=== PATIENT | female | born 1950 | race Caucasian/White ===

== ENCOUNTER 2024-03-05 08:02 | Day surgery (SDC) | payer MEDICARE, SELFPAY ==
[2024-03-05] VITALS (10 sets, daily range): BP systolic 106–125; BP diastolic 48–65; PULSE 74–94; RESP 16–18; TEMP 35.5–36.4; O2SAT 94–100; BMI 41.1
[2024-03-05] MEDS: Lactated Ringers 1,000 ML 15 ML IV (08:20)
--- NOTE | 2024-03-05 08:28 | PRE.ANES_ITS ---
ASA Classification* ASA Classification ASA Classification: 3 Assessment & Plan Anesthesia* Anesthesia Assessment Anesthesia Assessment: Discussed sedation and/or anesthesia options, risks, benefits, and alternatives with patient/parents/legal guardian/POA. Questions invited. The patient/parents/legal guardian/POA seems to understand and agrees to proceed with anesthesia plan. Reviewed the physical assessment, medical history, allergy history and patient home medications list prior to surgery/procedure/anesthetic and documented any changes. Performed airway and anesthesia risk assessments. Anesthesia Type Anesthesia Type: MAC Anesthesia Focused Assessment* Temperature: 97.5 F Pulse Rate: 94 Blood Pressure: 123/62 Respiratory Rate: 16 Pulse Ox: 94 Airway Assessment Mouth opens: >3 cm Mallampati Score: II Focused Labs Anesthesia Preop lab: CBC CHEMISTRY COAG Pre-Assessment Diagnosis/Proposed Procedure Planned Operative Procedure(s): TEMPORAL ARTERY BIOPSY Anesthesia History Anesthesia History - alcohol and drug counselor: Anesthesia History - alcohol and drug counselor Hx Hospitalization Yes: DECEMBER 2023, [facility]PASS, 03/04/24 10:09 MITRAL VALVE Any Problems With Anesthesia No: DEVIATED SEPTUM LEFT 03/04/24 10:09 SIDE Cholinesterase deficiency No 03/04/24 10:09 You/Your Family Experience No 03/04/24 10:09 fever (hyperthermia) with Relationship Recent Exposure to Contagious No 03/05/24 08:17 Disease Does patient have nerve No 03/04/24 10:09 stimulator Patient instructed to have device shut off --Does patient have Pacemaker No 03/05/24 08:17 or ICD? When Was Last Pacemaker Check QUESTION #4 FULL TEXT: You/Your Family Experience fever (hyperthermia) with Anesthesia Last Oral Intake Last Oral intake: Last Oral Intake NPO since 22:00 03/05/24 08:17 Meds taken in AM with sips of water? Meds patient instructed to take am of surgery PONV PONV - alcohol and drug counselor: PONV - alcohol and drug counselor Female Yes 03/04/24 10:09 HX of Motion Sickness No 03/04/24 10:09 HX of N/V After Surgery No 03/04/24 10:09 Non-Smoker Yes 03/04/24 10:09 Duration of Surgery greater No 03/04/24 10:09 than 60 minutes Number of Risk Factors 2 03/04/24 10:09 PONV Score Moderate Risk 03/04/24 10:09 Height & Weight Height & Weight: Anesthesia: Height & Weight Height 5 ft 2 in 03/05/24 08:17 Weight: 102 kg 03/05/24 08:17 Body Mass Index (BMI) 41.1 03/05/24 08:17 Respiratory Assessment Respiratory Assessment - alcohol and drug counselor: Respiratory Tract Infection Hx - alcohol and drug counselor Hx Respiratory Tract Infection No 03/04/24 10:09 STOP Sleep Apnea STOP Sleep Apnea - alcohol and drug counselor: STOP Sleep Apnea - alcohol and drug counselor Hx Hypertension Yes: CONTROLLED 03/04/24 10:09 Hx Sleep Apnea No 03/04/24 10:09 CPAP BIPAP Do you snore loudly (louder Yes 03/04/24 10:09 than talking or can be heard Do you often feel tired/ No 03/04/24 10:09 fatigued/ sleepy during daytime? Has anyone observed you stop No 03/04/24 10:09 breathing during sleep? STOP Results Positive 03/04/24 10:09 QUESTION #5 FULL TEXT : Do you snore loudly (louder than talking or can be heard through closed doors)? Tobacco Use History Tobacco Use History - alcohol and drug counselor: Tobacco Use History - alcohol and drug counselor Tobacco Use Smoking Status Never smoker 03/04/24 10:09 Hx Tobacco Use No 03/04/24 10:09 Years Smoking Packs Smoked per Day Smoking Cessation Date was within the last 15 years Hx Smoking Cessation Date Hx Smoking Cessation Counseling Hematologic Medial History Hematologic Hx - alcohol and drug counselor: Hematologic Medical Hx - change manager Hx of Blood Transfusion Yes 03/04/24 10:09 Hx of Transfusion in last 3 No 03/04/24 10:09 Months Date of Last Transfusion (if within last 3 months) Ever experience any problems No 03/04/24 10:09 with transfusion(s)? Specify any problems Hx of Preganancy in last 3 N/A 03/04/24 10:09 Months Nurse Filling Out Transfusion [email or web address] 03/04/24 10:09 & Questions: Date: 03/04/24 03/04/24 10:09 Time: 10:18 03/04/24 10:09 Patient unable to answer at this time (ie. confused, unrespo /Reproduction History /Reproductive History - alcohol and drug counselor: /Reproductive Hx- alcohol and drug counselor Hx Now Gestational Age (in weeks): EDC: Hx Hx Para Hx Section SAB Active Medications Active Medications: Current Medications Generic Name Dose Route Start Last Admin Trade Name Freq PRN Reason Stop Dose Admin Lactated Ringer's 1,000 mls @ 15 mls/hr 03/05/24 08:15 03/05/24 08:20 IV 15 mls/hr .Q48H JUSTINO Administration PFSH Medical History Uterine cancer Wears glasses Depression Fibromyalgia Fatty liver Stage 3 chronic kidney disease Open wound Injury of head and neck Gastric reflux Non-smoker Hypertension Cardiology follow-up encounter Arthritis Back problem Thyroid disease Asthma Heart attack A-fib Home Medications ?Medication ?Instructions ?Recorded ?Last Taken ?Type albuterol sulfate 90 mcg/actuation 2 puff inhalation Q6H PRN 03/03/24 Unknown History aerosol inhaler (Ventolin HFA) shortness of breath or wheezing ascorbic acid (vitamin C) 250 mg 250 mg PO DAILY 03/03/24 Unknown History tablet aspirin 81 mg tablet,delayed 81 mg PO DAILY 03/03/24 03/04/24 History release (Adult Low Dose Aspirin) cetirizine 10 mg capsule (Zyrtec) 10 mg PO DAILY allergy symptoms 03/03/24 Unknown History cholecalciferol (vitamin D3) 1,250 1,250 mcg PO QWEEK 03/03/24 Unknown History mcg (50,000 unit) capsule coQ10 (ubiquinol) 100 mg capsule 100 mg PO BID 03/03/24 Unknown History (Qunol Chivo CoQ10) docusate sodium 100 mg capsule 100 mg PO DAILY 03/03/24 Unknown History duloxetine 20 mg capsule,delayed 20 mg PO BID 03/03/24 Unknown History release fluticasone furoate 200 1 inh inhalation DAILY 03/03/24 Unknown History mcg-vilanterol 25 mcg/dose inhalation powder (Breo Ellipta) levothyroxine 75 mcg capsule 75 mcg PO DAILY 03/03/24 03/05/24 History metoprolol tartrate 25 mg tablet 25 mg PO DAILY 03/03/24 03/05/24 History omeprazole 20 mg capsule,delayed 20 mg PO DAILY PRN GERD 03/03/24 Unknown History release oxycodone-acetaminophen 5 mg-325 1 tab PO Q4-6H PRN pain 03/03/24 03/05/24 06:00 History mg tablet (Percocet) pyridoxine (vitamin B6) 100 mg 100 mg PO DAILY 03/03/24 Unknown History tablet spironolactone 25 mg tablet 25 mg PO DAILY 03/03/24 Unknown History valsartan 40 mg tablet 40 mg PO BID 03/03/24 03/05/24 History acetaminophen 500 mg capsule 1,000 mg PO Q8H PRN pain 03/04/24 Unknown History magnesium oxide 400 mg (241.3 mg 400 mg PO BID 03/04/24 Unknown History magnesium) tablet Allergy/AdvReac Type Severity Reaction Status Date / Time fluticasone (From Flonase) Allergy Intermediate Upset Verified 03/04/24 10:02 Stomach Surgical History History of total left knee replacement H/O: hysterectomy Hx of tonsillectomy Hx of appendectomy H/O neck surgery H/O heart surgery Hx of CABG Social History Smoking Status: Never smoker alcohol intake: current substance use type: does not use Review of Systems (Anesthesia) ROS Narrative System reviewed and no additional complaints, except as documented.
[2024-03-05] MEDS: Lubricating Jelly 60 GM Tube 30 GM (09:48)
--- NOTE | 2024-03-05 10:00 | TEM_PTH ---
PATIENT: SHARMIN MEZA [place]: [facility] [place] U[place][id number] AGE/SX: 73/F ROOM: RE03/05/[address]: Dr. Jayy Nayak MD : 1950 BED: DIS: 03/05/2024 SPEC #: [id number] RECD: 03/05/24 14:10 STATUS: SHAI ANNEMARIE #: [id number] MOHAN: 03/05/24 10:[address]: Jayy Nayak DEPT: SURGICAL PATHOLOGY RECD BY: Simon Honeycutt ENTERED: 03/05/24 14:16 SP TYPE: TEMPORAL OTHR DR: Dr. Keisha Dobbs, DO Tissues: Temporal region Procedures: Surgery Specimen Level IV HEADER OPERATION: Biopsy, left temporal artery PRE-OP DIAGNOSIS: Temporal pain TISSUE SUBMITTED: Left temporal artery MICROSCOPIC DIAGNOSIS Left temporal artery, biopsy: Negative for giant cell arteritis. See comment. SJ/mr 03/08/2024 COMMENT Elastic stain with matched control is used in the evaluation of the specimen. Clinical correlation and appropriate follow up are necessary. MICROSCOPIC DESCRIPTION Slides are reviewed. GROSS DESCRIPTION Received in fixative is one container labeled with the patient's name and designated Left temporal artery. The specimen consists of one irregular fragment of light davis soft tissue that measures 2.0cm in length and 0.1cm in diameter. The specimen is totally submitted in one cassette. 03/05/2024 TC:4 CPT:67531,44662
--- NOTE | 2024-03-05 10:16 | HP.PCM_ITS ---
History and Physical Date of Admission: 03/05/24 Date of Service: 03/03/24 MR#: [id number] Acct: [id number] Name: SHARMIN ROD Rep #: [id number] : 1950 Provider: Dr. Jayy Nayak MD Age/Sex: 73/F Location: [facility] Status: Signed Intake Vital Signs 03/03/2414:03 Height 5 ft 2 in Weight: 226 lb BMI 41.3 BP 108/71 Blood Pressure Location Rt brachial Position Sitting Respiration 17 Pulse 83 Pulse Source Monitor Pulse Oximetry (%) 94 Oxygen Delivery Method room air Intake Visit Reasons: TEMPORAL ARTERY Chief Complaint: temporal artery Is patient in pain?: Yes (neck,face, temporal area, teeth and behind left eye) Allergies fluticasone (From Flonase) Allergy (Intermediate, Verified 03/04/24 10:02) Upset Stomach Medications ?Medication ?Instructions ?Recorded ?Confirmed ?Type albuterol sulfate 90 mcg/actuation 2 puff inhalation Q6H PRN 03/03/24 03/04/24 History aerosol inhaler (Ventolin HFA) shortness of breath or wheezing ascorbic acid (vitamin C) 250 mg 250 mg PO DAILY 03/03/24 03/04/24 History tablet aspirin 81 mg tablet,delayed 81 mg PO DAILY 03/03/24 03/04/24 History release (Adult Low Dose Aspirin) cetirizine 10 mg capsule (Zyrtec) 10 mg PO DAILY allergy symptoms 03/03/24 History cholecalciferol (vitamin D3) 1,250 1,250 mcg PO QWEEK 03/03/24 03/04/24 History mcg (50,000 unit) capsule coQ10 (ubiquinol) 100 mg capsule 100 mg PO BID 03/03/24 03/04/24 History (Qunol Chivo CoQ10) docusate sodium 100 mg capsule 100 mg PO DAILY 03/03/24 03/04/24 History duloxetine 20 mg capsule,delayed 20 mg PO BID 03/03/24 03/04/24 History release fluticasone furoate 200 1 inh inhalation DAILY 03/03/24 03/04/24 History mcg-vilanterol 25 mcg/dose inhalation powder (Breo Ellipta) levothyroxine 75 mcg capsule 75 mcg PO DAILY 03/03/24 03/04/24 History metoprolol tartrate 25 mg tablet 25 mg PO DAILY 03/03/24 03/04/24 History omeprazole 20 mg capsule,delayed 20 mg PO DAILY PRN GERD 03/03/24 03/04/24 History release oxycodone-acetaminophen 5 mg-325 1 tab PO Q4-6H PRN pain 03/03/24 03/04/24 History mg tablet (Percocet) pyridoxine (vitamin B6) 100 mg 100 mg PO DAILY 03/03/24 03/04/24 History tablet spironolactone 25 mg tablet 25 mg PO DAILY 03/03/24 03/04/24 History valsartan 40 mg tablet 40 mg PO BID 03/03/24 03/04/24 History acetaminophen 500 mg capsule 1,000 mg PO Q8H PRN pain 03/04/24 03/04/24 History amiodarone 200 mg tablet 200 mg PO DAILY 03/04/24 03/04/24 History magnesium oxide 400 mg (241.3 mg 400 mg PO BID 03/04/24 03/04/24 History magnesium) tablet Have you fallen in the past year?: No PFSH Medical History (Updated 03/04/24 @ 21:[address] Jayy Nayak MD) Uterine cancer Wears glasses Depression Fibromyalgia Fatty liver Stage 3 chronic kidney disease Open wound Injury of head and neck Gastric reflux Non-smoker Hypertension Cardiology follow-up encounter Arthritis Back problem Thyroid disease Asthma Heart attack A-fib Surgical History (Updated 03/04/24 @ 10:27 by Campbell Abdi) History of total left knee replacement H/O: hysterectomy Hx of tonsillectomy Hx of appendectomy H/O neck surgery H/O heart surgery Hx of CABG Social History (Updated 03/03/24 @ 14:03 by María Elena Teresa) Smoking Status: Never smoker alcohol intake: current substance use type: does not use HPI HPI HPI: Patient is a 73-year-old female who presents for consideration of temporal artery biopsy. She is referred from Dr. Dobbs. She shares that beginning on 02/12/2024 she started with some neck pain that progressed to tenderness of her scalp (she notes that her hair follicles seem to hurt), terrible tooth ache, retro-orbital eye pain, and pain even within her left ear. When asked to prioritize these pain she describes pain is worst with her left ear. She notes multiple ER visits and a preliminary diagnosis of trigeminal neuralgia. She states that she was on carbamazepine through emergency department but was advised that it could take a week before this becomes effective. She since has gone off this medication and has been prescribed oxycodone. However, she notes that this relief is limited to 4 hours and she is to take them only every 6 h ours so she spends a considerable amount of time pain. She asked me whether it is possible to have something additional. When asked about any visual difficulties she denies any blurred vision, specifically Patient is actively recovering from a coronary artery bypass grafting procedure performed 12/30/2023. She states that she presented to ER for complaints of very light chest pressure and was diagnosed to have a heart attack in early December. She ultimately underwent the CABG procedure at the [facility]. Perioperatively she was managed for pleural effusions as well as perioperative atrial fibrillation. She also notes that her perioperative echocardiogram showed initial ejection fraction of 15% that improved to 32%. She states that her exercise tolerance continues to improve postoperatively and she confirms that she is now able to take the stairs in their two-level home without stopping due to shortness of breath. ROS General General: Yes weight change and fatigue; No appetite, colon cancer, breast cancer or weakness HEENT HEENT: No difficulty swallowing, eye injury, eye surgery, swollen glands or hoarseness Endo Endocrine: Yes thyroid disease; No diabetes mellitus, thyroid cancer, Hair loss, heat intolerance or cold intolerance Skin Skin: No rash or changing moles Musc Musculoskeletal: Yes back problems and arthritis; No rheumatoid arthritis, gout or joint pain Cardio Cardiovascular: Yes heart disease, atrial fibrillation and heart attack; No murmur, pacemaker, high blood pressure, heart stent, palpitations, shortness of breat with exertion or chest pain Psych Psychiatric: Yes anxiety; No depression or hearing voices Resp Respiratory: No shortness of breath, No sleep apnea, No cough, No COPD, Yes asthma, No emphysema and No wheezing Gastro Gastrointestinal: No abdominal pain, No nausea or vomiting, No diarrhea, No constipation, No blood in stool, No acid reflux, No hemorrhoids, No ulcers, No gallbladder problem and No black,tarry stools Benedict Hematologic: No blood thinners, No blood disorders, No bleeding, No anemia and No blood clots Neuro Neurologic: No system reviewed and no additional complaints, except as documented, No as per HPI, No abnormal gait, No abnormal hearing, No abnormal movements, No abnormal speech, No behavioral changes, No burning sensations, No confusion, No convulsions, No disequilibrium, No dizziness, No localized weakness, No frequent falls, No headache(s), No lack of coordination, No loss of vision, No memory loss, Yes numbness, No other visual disturbances, No radicular pain, No restless legs, No sensory deficit, No syncope, Yes tingling, No tremor(s), No weakness and No other Exam Const General: cooperative and no acute distress Nutritional Appearance: obese Orientation: alert, awake and oriented x3 HENMT Head: normal to inspection and scalp tenderness (Palpable left temporal artery in the preauricular position within the hair) Assessment and Plan Assessment and Plan (1) Temporal pain: Status: Acute Comment: Patient is a 73-year-old female who has been under workup for temporal and facial pain since 02/12/2024. She is referred from Dr. Dobbs because differential includes possible temporal arteritis and there is some reluctance to start steroids given patient's recent cardiac revascularization. Interestingly patient denies any change to her vision and complaints primarily of discomfort in her left ear. It is apparent that a diagnosis of trigeminal neuralgia has been at least partially explored but it is reported by Mrs. Rod that she has gone off of carbamazepine. She asked me on several occasions for additional pain medication I have referred her back to her PCP is already prescribed a narcotic. I have suggested she may want to also ask about returning to carbamazepine as well. I am happy to oblige the request for temporal artery biopsy and this procedure was described in detail with patient and her . Will plan to proceed with this later this week under a local MAC. Plan: Left temporal artery biopsy under local MAC I have examined the patient and the H&P has been reviewed. There are no clinical changes since date of exam. Procedure and post procedure pathology expectations were discussed. Patient's questions were answered to her satisfaction. Proceed to the operating room for left temporal artery biopsy.
[2024-03-05] MEDS: Cefazolin 2 GM in 0.9% Normal Saline (100mL Bag) 100 ML IV (10:29)
[2024-03-05] MEDS: Lidocaine 1% (20 ml mdv) 20 ML Vial (11:00)
--- NOTE | 2024-03-05 11:48 | PCM.OPRPT ---
Report of Operation Date of Procedure: 03/05/24 Pre-Operative Diagnosis: Scalp and facial pain rule out temporal arteritis Post-Operative Diagnosis: Same Surgery/Procedure Performed:: Left temporal artery biopsy Description of Surgical Findings:: Mildly tortuous temporal artery Surgeon: Jayy Nayak audio visual arts director: None Type of Anesthesia: MAC/Supplemental/Local Anesthesiologist: Shimon Park Description of Procedure: Patient was brought to the operating room from the holding area where she was positioned supine on the operating room table. There she underwent sedation per anesthesia. Her left scalp was then examined and I mapped out the course of her temporal artery using a Doppler probe. Marking pen was used to designate this course. The patient's intervening hair was trimmed and the site was prepped and draped. Formal timeout followed to confirm patient and procedure. A 3 cm longitudinal incision was made over the area of the patient's temporal artery and was carried down through the dermal layer with sharp dissection. Upon reaching this depth I transitioned to use of blunt dissection with limited electrocautery via a needle tip on the Bovie. A self-retaining retractor was placed and the soft tissue over the vessel was completely retracted. Once it was clearly defined, the vessel was bluntly encircled and a vessel loop was placed about the artery to facilitate traction and mobilization. Several minor branches along the course of the vessel were secured with 4-0 silk ligatures and divided on the specimen side. Once an adequate length of the artery was dissected (approximately 2 cm), the proximal and distal extents were also clamped and transected. The free ends were ligated with additional 3-0 silk. The specimen was passed off the field for pathologic evaluation. The wound was irrigated and closed deeply at the dermal layer using 3-0 Vicryl. The skin was closed with 4-0 Monocryl. Dermabond was applied as a dressing. Patient's sedation was lightened and taken to PACU for ongoing recovery. Complications None Procedures Cardiovascular CF Procedures [id number]: [id number] Temporal artery procedure
--- NOTE | 2024-03-05 11:49 | EX.PCM.DISCH ---
Discharge Instructions Diet Discharge Diet: No restrictions Activity Discharge Activity: May Shower (Starting tomorrow) Ice area for (Minutes): 20 Dressing / Incision Call your doctor if your incision/area has: Continuous Slow Oozing, Sudden Increased Bleeding, Increased Pain/ Swelling and Increased Redness Call your doctor if you observe: Fever of 101 or Higher Cleanse incision/area with: Soap & Water Follow Up Care Please Follow Up With: Jayy Nayak MD When: 2 weeks for wound check Test Results: Test results from this visit will be discussed in further detail at your follow-up appointment, if applicable. Discharge Plan Admission Primary Reason for Your Visit: Temporal artery biopsy Attending Provider: Jayy Nayak Primary Care Provider: Keisha Dobbs Instructions Print Language: Montenegrin Discharge Orders/Prescriptions Prescriptions: Continued oxycodone-acetaminophen [Percocet] 5-325 mg tablet 1 tab PO Q4-6H PRN (Reason: pain) albuterol sulfate [Ventolin HFA] 90 mcg/actuation HFA aerosol inhaler 2 puff inhalation Q6H PRN (Reason: shortness of breath or wheezing) ascorbic acid (vitamin C) 250 mg tablet 250 mg PO DAILY aspirin [Adult Low Dose Aspirin] 81 mg tablet,delayed release (DR/EC) 81 mg PO DAILY Zyrtec 10 mg capsule 10 mg PO DAILY cholecalciferol (vitamin D3) 1,250 mcg (50,000 unit) capsule 1,250 mcg PO QWEEK docusate sodium 100 mg capsule 100 mg PO DAILY duloxetine 20 mg capsule,delayed release(DR/EC) 20 mg PO BID fluticasone furoate-vilanterol [Breo Ellipta] 200-25 mcg/dose blister with device 1 inh inhalation DAILY levothyroxine 75 mcg capsule 75 mcg PO DAILY metoprolol tartrate 25 mg tablet 25 mg PO DAILY omeprazole 20 mg capsule,delayed release(DR/EC) 20 mg PO DAILY PRN (Reason: GERD) spironolactone 25 mg tablet 25 mg PO DAILY coQ10 (ubiquinol) [Qunol Chivo CoQ10] 100 mg capsule 100 mg PO BID valsartan 40 mg tablet 40 mg PO BID pyridoxine (vitamin B6) 100 mg tablet 100 mg PO DAILY acetaminophen 500 mg capsule 1,000 mg PO Q8H PRN (Reason: pain) magnesium oxide 400 mg (241.3 mg magnesium) tablet 400 mg PO BID Referrals / Follow Up: Keisha Dobbs DO [Primary Care Provider] - Disposition Disposition (needs filled in before D/C Order can be placed): Home, Self Care
--- NOTE | 2024-03-05 12:15 | PCM.POST.ANE ---
Anesthesia: Postop Eval I Current Vital Signs Temperature: 97.4 F Pulse Rate: 76 Blood Pressure: 113/54 Respiratory Rate: 16 Pulse Ox: 100 Oxygen Delivery Method: Room Air Assessment Airway patent: Yes Spontaneous unlabored respirations: Yes Mental status: Awake and Calm nausea: No Vomiting: No Anesthesia Complication: No Fluid Hydration Crystalloid volume administer (ml): 400 Total IV fluid infused: 400 Progress Note Anesthesia document: Postop Eval 1 completed: Yes
--- NOTE | 2024-03-05 13:18 | PCM.POSTANE2 ---
Anesthesia Postop Eval I Sum Postop Eval Completion status Anesthesia document: Postop Eval 1 completed: Yes Anesthesia Postop Eval I Summary Anesthesia Postop Eval I Summary: Anesthesia Postop Eval I: Assessment Summary Airway patent Yes 03/05/24 12:16 [email or web address] Spontaneous unlabored Yes 03/05/24 12:16 [email or web address] respirations Mental status Awake,Calm 03/05/24 12:16 [email or web address] nausea No 03/05/24 12:16 [email or web address] Vomiting No 03/05/24 12:16 [email or web address] Anesthesia Postop Eval I: Fluid Summary Crystalloid volume administer 400 03/05/24 12:16 [email or web address] (ml) Colloids volume administered ( ml) Blood Product volume administered (ml) Total IV fluid infused 400 03/05/24 12:16 [email or web address] Anesthesia Postop Eval I: Summary Notes Anesthesia Complication No 03/05/24 12:16 [email or web address] Anesthesia Complication Comment: Post-operative progress note Anesthesia: Postop Eval II Evaluation Mental status: Awake and Calm Pain Level: 0 nausea: No Vomiting: No Complications Anesthesia Complication: No
== END 2024-03-05 13:08 | disposition home or self-care (01) ==
LOC: SDC 08:03 → AC 08:05
PROVIDERS: PCP Family Medicine; Referring Provider Surgery; Visit Provider Surgery
PROC: (CPT 37609; principal; 2024-03-05 09:45)
DX: R51.9 Headache, unspecified (principal); I48.91 Unspecified atrial fibrillation; N18.30 Chronic kidney disease, stage 3 unspecified; I12.9 Hypertensive chronic kidney disease with stage 1 through stage 4 chronic kidney disease, or unspecified chronic kidney disease; E07.9 Disorder of thyroid, unspecified; I25.2 Old myocardial infarction; J45.909 Unspecified asthma, uncomplicated; E66.9 Obesity, unspecified; Z79.51 Long term (current) use of inhaled steroids; Z79.82 Long term (current) use of aspirin; Z79.899 Other long term (current) drug therapy; Z95.1 Presence of aortocoronary bypass graft
CPT/HCPCS: 37609; 88305; A4648; J7120; J2405